=== PATIENT | female | born 1965 | race Caucasian/White ===

== ENCOUNTER 2021-09-17 07:36 | Day surgery (SDC) | payer BC ==
[2021-09-10 11:44] LABS: BASOPHILS # (AUTO) 0.1 X10'3 (0-0.2); EOSINOPHILS # (AUTO) 2.1 X10'3 (0-0.9); EOSINOPHILS % (AUTO) 21.5 % (0-6); LYMPHOCYTES # (AUTO) 1.6 X10'3 (1.1-4.8); LYMPHOCYTES % (AUTO) 16.9 % (21-51); MEAN CORPUSCULAR HEMOGLOBIN 29.5 PG (27.0-31.0); MEAN CORPUSCULAR HGB CONC 34.3 g/dL (33.0-36.5); MEAN PLATELET VOLUME 7.6 FL (7.4-10.4); MONOCYTES # (AUTO) 0.6 X10'3 (0-0.9); MONOCYTES % (AUTO) 5.9 % (2-12); NEUTROPHILS # (AUTO) 5.3 X10'3 (1.8-7.7); NEUTROPHILS % (AUTO) 54.7 % (42-75); PRE OP HEMATOCRIT 43.2 % (35.0-45.0); PRE OP HEMOGLOBIN 14.8 g/dL (12.0-16.0); PRE OP PLATELET COUNT 276 X10'3 (140-440); RED BLOOD COUNT 5.02 X10'6 (4.20-5.60); RED CELL DISTRIBUTION WIDTH 14.3 % (11.5-14.5)
[2021-09-10 11:57] LABS: PRE OP INR 1.2 INR
[2021-09-10 11:59] LABS: ALBUMIN 3.5 G/DL (3.4-5.0); ALBUMIN/GLOBULIN RATIO 0.8 (1.1-1.5); ALKALINE PHOSPHATASE 70 IU/L (46-116); BLOOD UREA NITROGEN 20 MG/DL (7-18); BUN/CREATININE RATIO 18.9 (6.6-38.0); CALCIUM 8.8 MG/DL (8.5-10.1); CHLORIDE 104 MMOL/L (99-107); CREATININE 1.06 MG/DL (0.40-0.90); PRE OP ALT 31 U/L (30-65); PRE OP ANION GAP 8 (8-16); PRE OP AST 27 U/L (10-37); PRE OP BILIRUB, TOTAL 0.4 MG/DL (0.0-1.0); PRE OP GLUCOSE 105 MG/DL (70-104); PRE OP SODIUM 141 MMOL/L (135-145); TOTAL CARBON DIOXIDE 29.4 MMOL/L (24-32); TOTAL PROTEIN 7.8 G/DL (6.4-8.2); eGFR 54 ML/MIN
[2021-09-10 12:06] LABS: PRE OP POTASSIUM 3.3 MMOL/L (3.4-5.1)
[2021-09-10 12:14] LABS: PLATELET ESTIMATE NORMAL; TOTAL CELLS COUNTED 100
[2021-09-17] VITALS (15 sets, daily range): BP systolic 100–163; BP diastolic 54–101
[~2021-09-17] VITALS: Ht 162.6 cm; Wt 99.8 kg
[~2021-09-17 07:36] MED LIST: ALBU8.5H17 INH; BENA1TAB88 PO; CITA40TA30 PO; DOCU-342 PO; DOCUMENT DATE & TIME OF BETA-BLOCKER PO ONE; FLUT1BLS13 INH; FLUT1DIS20 INH; GINKGO BILOBA PO; LACT1CAP65 PO; LIDOcaine 1% W/epiNEPHrine 1:200,000 10ml vial ONE; LORA10CA PO; LORA10TA7 PO; MELO-102 PO; METO-395 PO; MUPI22OI30 TOP; cocaine 4% topical solution 4ml bottle ONE; famotidine 20mg tablet PO ONE; methylPREDNISolone acetate 80mg/ml inj**IM only ONE; mupirocin 2% ointment 22GM ONE; oxymetazoline 15 ML nasal spray NS ONE; ringers solution, lacted 1,000 ML IV SCH
[2021-09-17] MEDS ORDERED: diazepam 5mg tablet PO ONE (09:05)
[2021-09-17] MEDS ORDERED: oxymetazoline 15 ML nasal spray NS SCH (09:05)
[2021-09-17] MEDS ORDERED: hydrALAZINE 20mg/ml inj. IV PRN (11:45)
[2021-09-17] MEDS ORDERED: morphine 2 MG/ML inj. syringe IV PRN (11:45)
[2021-09-17] MEDS ORDERED: ringers solution, lacted 1,000 ML IV SCH (11:45)
[2021-09-17] MEDS ORDERED: morphine 4 MG/ML inj SYRINge IV PRN (11:45)
[2021-09-17] MEDS ORDERED: ondansetron/PF 4mg/2ml inj IV PRN (11:45)
[2021-09-17] MEDS ORDERED: labetalol 20mg/4ml (5mg/ml) syringe IV PRN (11:45)
[2021-09-17] MEDS ORDERED: fentaNYL/PF 50MCG/1 ML 2ML syringe IV PRN ×2 (11:45)
[2021-09-17] MEDS ORDERED: midazolam 1 mg/ML 2ml injection ONE (11:52)
[2021-09-17] MEDS ORDERED: fentaNYL/PF 50MCG/1 ML 2ML syringe ONE (11:52)
[2021-09-17] MEDS ORDERED: neostigmine methylsulfate 1 MG/ML 10ml vial ONE (11:53)
[2021-09-17] MEDS ORDERED: glycopyrrolate 0.2mg/ml inj ONE (11:53)
[2021-09-17] MEDS ORDERED: rocuronium 10mg/ml inj IV ONE (11:53)
[2021-09-17] MEDS ORDERED: ondansetron/PF 4mg/2ml inj ONE (11:53)
[2021-09-17] MEDS ORDERED: sevoflurane 250ml liquid IH ONE (11:55)
[2021-09-17] MEDS ORDERED: dexamethasone sod phosphate 10mg/ml inj ONE (11:55)
[2021-09-17] MEDS ORDERED: dexmedetomidine 200mcg/2ml inj. IV ONE (11:55)
[2021-09-17] MEDS ORDERED: propofol inj 20 ML IV ONE (12:11)
[2021-09-17] MEDS ORDERED: LIDOcaine 2% (20mg/ml) 5ml vial ONE (12:11)
[2021-09-17] MEDS ORDERED: ePHEDrine 50MG/ML INJ. ONE (12:32)
[2021-09-17] MEDS ORDERED: CLINDAMYCIN/D5W 900mg/50ml 50 ML IV ONE (12:55)
--- NOTE | 2021-09-17 13:10 | NUR ---
PT ARRIVED TO MRSA ROOM AFTER SEPTOPLASTY-ISO PRECAUTIONS USED
--- NOTE | 2021-09-17 13:45 | NUR ---
PT ARRIVED TO RR VIA [facility], ACCOMPANIED BY DR. GARCIA, ANESTHESIA-REPORT GIVEN, PT AWAKE, VSS, DENIES PAIN, COTTONOIDS PRESENT BILATERALLY-NO BLEEDING NOTED, PIV 20G TO RIGHT WRIST, SCDS ON.
[2021-09-17] MEDS ORDERED: HYDROcodone/acetaminophen 5mg/325mg tablet PO ONE (14:30)
[2021-09-17] MEDS ORDERED: mupirocin 2% nasal ointment 1gm UD NS SCH (14:37)
[2021-09-17] MEDS ORDERED: salt irrigation nasal spray 45 ML SPRAY NS PRN (14:40)
--- NOTE | 2021-09-17 15:10 | NUR ---
PT UP AND GETTING DRESSED, VSS, PT GIVEN 1 NORCO FOR PAIN-SHE PREFERRED TO AVOID ANY FURTHER IV NARCOTICS, PIV D/CD-CANULA INTACT, COTTONOIDS REMOVED 30MIN AFTER ARRIVAL TO - ORDERED, NO EXCESSIVE BLEEDING NOTED, MUSTACHE DRSG APPLIED, PT D/C INSTRUCTIONS EXPLAINED AND DEMONSTRATED TO PT-ALL QUESTIONS ANSWERED, PT GIVEN ALL HOME SUPPLIES, TAKEN VIA W/C TO FAMILY VEHICLE WITH ALL BELONGINGS
== END 2021-09-17 15:10 | disposition home or self-care (01) ==
LOC: PAS 07:36
PROVIDERS: ATTEND Otolaryngology
DX: J34.2 Deviated nasal septum (principal); J34.3 Hypertrophy of nasal turbinates; J34.89 Other specified disorders of nose and nasal sinuses; J45.909 Unspecified asthma, uncomplicated; G47.33 Obstructive sleep apnea (adult) (pediatric); F41.9 Anxiety disorder, unspecified; I10 Essential (primary) hypertension; E66.9 Obesity, unspecified; Z68.37 Body mass index [BMI] 37.0-37.9, adult; G47.30 Sleep apnea, unspecified; G89.29 Other chronic pain; M19.90 Unspecified osteoarthritis, unspecified site; F32.9 Major depressive disorder, single episode, unspecified; Z86.14 Personal history of Methicillin resistant Staphylococcus aureus infection; Z88.8 Allergy status to other drugs, medicaments and biological substances; Z98.890 Other specified postprocedural states; Z98.51 Tubal ligation status; Z90.710 Acquired absence of both cervix and uterus; Z88.2 Allergy status to sulfonamides; Z88.1 Allergy status to other antibiotic agents; Z98.84 Bariatric surgery status; Z90.49 Acquired absence of other specified parts of digestive tract; Z20.822 Contact with and (suspected) exposure to COVID-19; Z79.01 Long term (current) use of anticoagulants
CPT/HCPCS: 30140; 30520; 36415; 80053; 85025; 85576; 85610; 85730; 87070; 87075; 87077; 87186; 87635; 93005; A6402; C9250; C9803; J1040; J1100; J2250; J2270; J2405; J2704; J2710; J3010; J3490; J7030; J7120; U0003; U0005; Z7506; Z7508; Z7512; 85007; A4618; A6258; A7000

== ENCOUNTER 2021-10-29 06:01 | Day surgery (SDC) | payer BC ==
[2021-10-22 12:03] LABS: BASOPHILS # (AUTO) 0.1 X10'3 (0-0.2); BASOPHILS % (AUTO) 1.5 % (0-1); EOSINOPHILS # (AUTO) 0.5 X10'3 (0-0.9); HEMATOCRIT 42.5 % (35.0-45.0); HEMOGLOBIN 14.2 g/dl (12.0-16.0); LYMPHOCYTES # (AUTO) 1.9 X10'3 (1.1-4.8); LYMPHOCYTES % (AUTO) 24.5 % (21-51); MEAN CORPUSCULAR HEMOGLOBIN 28.8 PG (27.0-31.0); MEAN CORPUSCULAR HGB CONC 33.5 g/dL (33.0-36.5); MEAN CORPUSCULAR VOLUME 86.1 FL (78-98); MEAN PLATELET VOLUME 7.6 FL (7.4-10.4); MONOCYTES # (AUTO) 0.4 X10'3 (0-0.9); MONOCYTES % (AUTO) 4.6 % (2-12); NEUTROPHILS # (AUTO) 4.8 X10'3 (1.8-7.7); NEUTROPHILS % (AUTO) 63.4 % (42-75); PLATELET COUNT 261 X10'3 (140-440); RED BLOOD COUNT 4.94 X10'6 (4.20-5.60); RED CELL DISTRIBUTION WIDTH 13.7 % (11.5-14.5); WHITE BLOOD COUNT 7.6 X10'3 (4.5-11.0)
[2021-10-22 12:12] LABS: APTT 25 SECONDS (22-32)
[2021-10-22 12:13] LABS: ALANINE AMINOTRANSFERASE 27 U/L (12-78); ALBUMIN 3.7 G/DL (3.4-5.0); ALBUMIN/GLOBULIN RATIO 0.8 (1.1-1.5); ALKALINE PHOSPHATASE 68 IU/L (46-116); ANION GAP 8 (8-16); ASPARTATE AMINO TRANSFERASE 24 U/L (10-37); BILIRUBIN,TOTAL 0.2 MG/DL (0.1-1.0); BLOOD UREA NITROGEN 13 MG/DL (7-18); BUN/CREATININE RATIO 12.6 (6.6-38.0); CALCIUM 9.2 MG/DL (8.5-10.1); CHLORIDE 105 MMOL/L (99-107); CREATININE 1.03 MG/DL (0.40-0.90); GLUCOSE 123 MG/DL (70-104); SODIUM 142 MMOL/L (135-145); TOTAL CARBON DIOXIDE 28.6 MMOL/L (24-32); TOTAL PROTEIN 8.1 G/DL (6.4-8.2); eGFR 56 ML/MIN
[2021-10-22 14:20] LABS: PLATELET FUNCTION (ADP) 83 SECONDS (63-104)
[~2021-10-29] VITALS: Ht 160 cm; Wt 98.2 kg
[2021-10-29] VITALS (13 sets, daily range): BP systolic 126–154; BP diastolic 80–110
[~2021-10-29 06:01] MED LIST changes: -ALBU8.5H17 INH; +CETI10TA19 PO; -DOCU-342 PO; -FLUT1BLS13 INH; -FLUT1DIS20 INH; -LIDOcaine 1% W/epiNEPHrine 1:200,000 10ml vial ONE; -LORA10CA PO; -LORA10TA7 PO; -MUPI22OI30 TOP; -cocaine 4% topical solution 4ml bottle ONE; +diazepam 5mg tablet PO ONE; -methylPREDNISolone acetate 80mg/ml inj**IM only ONE; -mupirocin 2% ointment 22GM ONE; -oxymetazoline 15 ML nasal spray NS ONE
[2021-10-29] MEDS ORDERED: cocaine 4% topical solution 4ml bottle ONE (06:58)
[2021-10-29] MEDS ORDERED: LIDOCAINE 1%/EPI 1:100,000 inj. 10 ML multi-dose vial ONE (06:58)
[2021-10-29] MEDS ORDERED: methylPREDNISolone acetate 80mg/ml inj**IM only ONE (06:58)
[2021-10-29] MEDS ORDERED: oxymetazoline 15 ML nasal spray NS ONE ×2 (06:59→08:07)
[2021-10-29] MEDS ORDERED: mupirocin 2% ointment 22GM ONE (06:59)
[2021-10-29] MEDS: oxymetazoline 15 ML nasal spray NS SCH ×2 (07:28→09:34)
[2021-10-29 07:33] LABS: ISTAT CREATININE 0.9 mg/dL (0.6-1.1); ISTAT HGB 13.3 g/dl (12.0-16.0); ISTAT IONIZED CALCIUM 1.26 mmol/L (1.03-1.32); ISTAT K 3.3 mmol/L (3.5-5.1); POC BUN/CREATININE RATIO 17.8 (6.6-38.0)
[2021-10-29] MEDS ORDERED: fentaNYL /PF 50mcg/ml 5ml ampule ONE (08:12)
[2021-10-29] MEDS ORDERED: midazolam 1 mg/ML 2ml injection ONE (08:12)
[2021-10-29] MEDS ORDERED: propofol inj 20 ML IV ONE (08:13)
[2021-10-29] MEDS ORDERED: LIDOcaine 2% (20mg/ml) 5ml vial ONE (08:13)
[2021-10-29] MEDS ORDERED: ondansetron/PF 4mg/2ml inj ONE (08:15)
[2021-10-29] MEDS ORDERED: dexamethasone sod phosphate 4mg/ml inj. ONE (08:15)
[2021-10-29] MEDS ORDERED: ondansetron/PF 4mg/2ml inj IV PRN (09:25)
[2021-10-29] MEDS ORDERED: morphine 4 MG/ML inj SYRINge IV PRN (09:25)
[2021-10-29] MEDS ORDERED: morphine 2 MG/ML inj. syringe IV PRN (09:25)
[2021-10-29] MEDS ORDERED: meperidine/PF 25mg/ml syringe IV PRN ×3 (09:25)
[2021-10-29] MEDS ORDERED: proCHLORperazine 10 MG/2 ml inj IV PRN (09:25)
[2021-10-29] MEDS ORDERED: ringers solution, lacted 1,000 ML IV SCH (09:25)
--- NOTE | 2021-10-29 09:52 | NUR ---
Received from OR via [facility] IN STABLE CONDITION , accompanied by Anesthesiologist and [employer] OFFICER report given by [employer] OFFICER AND Anesthesiolgist. Addendum: 10/29/21 at 1031 by Micaela Sims RN Amended: Links added.
[2021-10-29] MEDS ORDERED: salt irrigation nasal spray 45 ML SPRAY NS PRN (10:35)
[2021-10-29] MEDS ORDERED: enalaprilat dihydrate 2.5mg/2ml vial IV PRN (11:20)
--- NOTE | 2021-10-29 11:52 | NUR ---
PATIENT DISCHARGED FROM PACU IN STABLE CONDITION AFTER WRITTEN AND VERBAL DISCHARGE INSTRUCTIONS GIVEN. PATIENT GAVE VERBAL UNDERSTANDING OF INSTRUCTIONS GIVEN. PATIENT LEFT FACILITY VIA WHEELCHAIR WITH RN. Addendum: 10/29/21 at 1211 by Micaela Sims RN Amended: Links added.
== END 2021-10-29 11:52 | disposition home or self-care (01) ==
LOC: PAS 06:01
PROVIDERS: ATTEND Otolaryngology
DX: J32.8 Other chronic sinusitis (principal); J34.3 Hypertrophy of nasal turbinates; E66.01 Morbid (severe) obesity due to excess calories; Z68.38 Body mass index [BMI] 38.0-38.9, adult; F32.A Depression, unspecified; G47.30 Sleep apnea, unspecified; J45.909 Unspecified asthma, uncomplicated; M19.90 Unspecified osteoarthritis, unspecified site; G89.29 Other chronic pain; F41.9 Anxiety disorder, unspecified; Z88.8 Allergy status to other drugs, medicaments and biological substances; Z88.2 Allergy status to sulfonamides; Z86.14 Personal history of Methicillin resistant Staphylococcus aureus infection; Z98.890 Other specified postprocedural states; Z98.51 Tubal ligation status; Z90.49 Acquired absence of other specified parts of digestive tract; Z90.710 Acquired absence of both cervix and uterus; Z20.822 Contact with and (suspected) exposure to COVID-19; Z79.01 Long term (current) use of anticoagulants; Z79.899 Other long term (current) drug therapy
CPT/HCPCS: 30140; 31255; 31267; 36415; 61782; 80047; 80053; 85025; 85576; 85610; 85730; 87070; 87075; 87077; 87186; 87635; A6402; C9250; C9803; J1040; J1100; J2175; J2250; J2405; J2704; J3010; J3490; J7030; J7040; J7120; U0003; U0005; Z7506; Z7508; Z7512; A4618; A7000

== ENCOUNTER 2022-09-18 10:15 | Day surgery (SDC) | payer BC ==
[2022-09-18] VITALS (8 sets, daily range): BP systolic 102–173; BP diastolic 48–104
[~2022-09-18] VITALS: Ht 162.6 cm; Wt 113.6 kg
[~2022-09-18 10:15] MED LIST changes: -CETI10TA19 PO; -DOCUMENT DATE & TIME OF BETA-BLOCKER PO ONE; -GINKGO BILOBA PO; -LACT1CAP65 PO; -MELO-102 PO; -METO-395 PO; -diazepam 5mg tablet PO ONE; +oxymetazoline 15 ML nasal spray NS ONE; +tranexamic acid inj. 1,000 MG in normal saline IV soln 100ML IV ONE
[2022-09-18] MEDS ORDERED: cocaine 4% topical solution 4ml bottle ONE (10:41)
[2022-09-18] MEDS ORDERED: tranexamic acid 100mg/ml inj. ONE (10:41)
[2022-09-18] MEDS ORDERED: bacitracin 15gm ointment TP ONE (10:41)
[2022-09-18] MEDS ORDERED: LIDOCAINE 1%/EPI 1:100,000 inj. 10 ML multi-dose vial ONE (10:41)
[2022-09-18] MEDS ORDERED: oxymetazoline 15 ML nasal spray NS ONE (10:42)
[2022-09-18] MEDS ORDERED: dexmedetomidine 200mcg/2ml inj. IV ONE (12:37)
[2022-09-18] MEDS ORDERED: ondansetron/PF 4mg/2ml inj ONE (12:40)
[2022-09-18] MEDS ORDERED: fentaNYL/PF 50MCG/1 ML 2ML syringe ONE (12:40)
[2022-09-18] MEDS ORDERED: LIDOcaine 1%/PF 5ML 10 MG/ML VIAL ONE (12:41)
[2022-09-18] MEDS ORDERED: rocuronium 10mg/ml inj IV ONE (12:41)
[2022-09-18] MEDS ORDERED: propofol inj 20 ML IV ONE (12:41)
[2022-09-18] MEDS ORDERED: dexamethasone sod phosphate 4mg/ml inj. ONE (13:05)
[2022-09-18] MEDS ORDERED: mupirocin 2% ointment 22GM ONE ×2 (13:05→13:32)
[2022-09-18] MEDS ORDERED: neostigmine methylsulfate 1 MG/ML 10ml vial ONE (13:07)
[2022-09-18] MEDS ORDERED: glycopyrrolate 0.2mg/ml inj ONE (13:07)
--- NOTE | 2022-09-18 14:00 | NUR ---
Received from OR via , accompanied by Anesthesiologist and report given by Anesthesiolgist. PATIENT WAKING UP, DENIES PAIN, V/S STABLE, HTN MEDS TO BE GIVEN COTTONOIDS SINUS BILAT NO VISIBLE DRAINAGE, SCD ON, 20G RUE.
[2022-09-18] MEDS ORDERED: ringers solution, lacted 1,000 ML IV SCH (14:05)
[2022-09-18] MEDS ORDERED: ondansetron/PF 4mg/2ml inj IV PRN (14:05)
[2022-09-18] MEDS ORDERED: hydrALAZINE 20mg/ml inj. IV PRN (14:05)
[2022-09-18] MEDS ORDERED: labetalol 20mg/4ml (5mg/ml) syringe IV PRN (14:05)
[2022-09-18] MEDS ORDERED: fentaNYL/PF 50MCG/1 ML 2ML syringe IV PRN ×2 (14:05)
[2022-09-18] MEDS ORDERED: morphine 2 MG/ML inj. syringe IV PRN (14:05)
[2022-09-18] MEDS ORDERED: morphine 4 MG/ML inj SYRINge IV PRN (14:05)
[2022-09-18] MEDS ORDERED: salt irrigation nasal spray 45 ML SPRAY NS PRN (14:25)
--- NOTE | 2022-09-18 15:00 | NUR ---
PATIENT A&OX4, DENIES PAIN, V/S STABLE, HTN RESOLVED, COTTONOIDS SINUS BILAT REMOVED 30MIN POST OP CURRENTLY SCANT DRAINAGE SPOTTING TO 4X4 UNDER NOSE., SCD OFF, 20G RUE D/C. I HAVE REVIEWED D/C INSTRUCTIONS WITH PATIENT AND AND THEY HAVE VERBALIZED UNDERSTANDING. PATIENT D/C HOME WITH ALL BELONGINGS AND GAVE TRANSPORT HOME.
== END 2022-09-18 15:00 | disposition home or self-care (01) ==
LOC: PAS 10:15
PROVIDERS: ATTEND Otolaryngology
DX: J33.0 Polyp of nasal cavity (principal); R04.0 Epistaxis; J32.9 Chronic sinusitis, unspecified; G47.30 Sleep apnea, unspecified; J44.9 Chronic obstructive pulmonary disease, unspecified; F41.8 Other specified anxiety disorders; M19.90 Unspecified osteoarthritis, unspecified site; J34.89 Other specified disorders of nose and nasal sinuses; Z20.822 Contact with and (suspected) exposure to COVID-19; Z79.899 Other long term (current) drug therapy; Z88.8 Allergy status to other drugs, medicaments and biological substances; Z98.890 Other specified postprocedural states
CPT/HCPCS: 31237; 82948; 87635; 93005; A6402; C9250; C9803; J1100; J2405; J2704; J2710; J3010; J3490; J7030; J7040; J7120; Z7506; Z7508; Z7512; A4618; A6449; A7000